=== PATIENT | female | born 1950 | race Caucasian/White ===

== ENCOUNTER 2016-06-17 15:24 | Outpatient (CLI) | payer OTHER | END 2016-06-17 15:25 | disposition home or self-care (01) | DX: Z12.31 Encounter for screening mammogram for malignant neoplasm of breast (principal) ==

== ENCOUNTER 2016-07-10 08:30 | Outpatient (CLI) | payer OTHER | END 2016-07-10 08:31 | disposition home or self-care (01) | DX: N39.0 Urinary tract infection, site not specified (principal) ==

== ENCOUNTER 2016-12-23 08:42 | Outpatient (CLI) | payer MEDICARE, OTHER ==
[2016-12-23 12:57] LABS: EOSINOPHILS # (AUTO) 0.1 10^3/uL (0.0-0.7); EOSINOPHILS % (AUTO) 3.6 %; HCT - HEMATOCRIT 38.3 % (37.0-47.0); HGB - HEMOGLOBIN 12.8 g/dL (12.0-16.0); LYMPHOCYTES # (AUTO) 1.3 10^3/uL (1.5-3.5); LYMPHOCYTES % (AUTO) 34.2 %; MEAN CORPUSCULAR HEMOGLOBIN 30.4 pg (27.0-31.0); MEAN CORPUSCULAR HGB CONC 33.5 g/dL (32.0-36.0); MEAN CORPUSCULAR VOLUME 90.7 fL (81.0-99.0); MONOCYTES # (AUTO) 0.2 10^3/uL (0.0-1.0); MONOCYTES % (AUTO) 6.4 %; NEUTROPHILS % (AUTO) 54.8 %; RED BLOOD COUNT 4.23 10^6/uL (4.20-5.40); RED CELL DISTRIBUTION WIDTH 13.3 % (12.0-15.0); UNCORRECTED WHITE BLOOD COUNT 3.7 x10^3/uL; WHITE BLOOD COUNT 3.7 x10^3/uL (4.8-10.8)
[2016-12-23 13:22] LABS: ALBUMIN/GLOBULIN RATIO 1.4 (1.0-2.2); BILIRUBIN,TOTAL 0.6 mg/dL (0.2-1.0); BUN - BLOOD UREA NITROGEN 20 mg/dL (6-20); CALCIUM 9.2 mg/dL (8.5-10.3); CARBON DIOXIDE - CO2 28 mmol/L (21-32); CHLORIDE 105 mmol/L (101-111); CHOL/HDL RATIO 3.1 (<4.4); CHOLESTEROL 214 mg/dL; CREATININE 0.9 mg/dL (0.4-1.0); GFR - MDRD 63 (>89); GLUCOSE 89 mg/dL (70-100); HDL CHOLESTEROL 69 mg/dL; LDL/HDL RATIO 1.8 (<4.4); POTASSIUM 4.2 mmol/L (3.5-5.0); SODIUM 138 mmol/L (135-145); TOTAL PROTEIN 6.6 g/dL (6.7-8.2); TRIGLYCERIDES 94 mg/dL; VLDL CHOLESTEROL 19 mg/dL
== END 2016-12-23 08:43 | disposition home or self-care (01) ==
LOC: LAB.N 08:42
PROVIDERS: ATTEND Family Medicine
DX: R74.8 Abnormal levels of other serum enzymes (principal); Z13.220 Encounter for screening for lipoid disorders; E03.9 Hypothyroidism, unspecified; D72.819 Decreased white blood cell count, unspecified
CPT/HCPCS: 36415; 80053; 80061; 84443; 85025

== ENCOUNTER 2017-06-21 13:30 | Outpatient (CLI) | payer MEDICARE, OTHER ==
--- NOTE | 2017-06-22 19:56 | Mammography Report ---
DIGITAL SCREENING MAMMOGRAM: 06/21/2017 CLINICAL INDICATION: A 66-year-old with personal history of right breast cancer, status post lumpectomy and radiation therapy for screening. TECHNIQUE: Routine CC and MLO projections were obtained of the breasts. COMPARISON: 05/2016, 04/2015, 04/2013, 07/2012, 12/2011, 04/2011 FINDINGS: The breasts again demonstrate heterogeneously dense fibroglandular parenchyma. Postoperative and posttreatment changes in the right breast are stable. Coarse and punctate, typically benign calcifications are present. No suspicious masses, clustered microcalcifications, or regions of architectural distortion are identified. IMPRESSION: BENIGN FINDINGS. RECOMMENDATION: Routine annual screening unless otherwise clinically indicated. BIRADS CATEGORY - 2 BENIGN FINDINGS. STANDARD QUALIFYING STATEMENTS: 1. This examination was reviewed with the aid of Computer-Aided Detection (CAD). 2. A negative or benign imaging report should not delay biopsy if clinically suspicious findings are present. Consider surgical consultation if warranted. More than 5% of cancers are not identified by imaging. 3. Dense breasts may obscure an underlying neoplasm. TD: 06/22/2017 19:56
== END 2017-06-21 13:31 | disposition home or self-care (01) ==
LOC: DI.N 13:30
PROVIDERS: ATTEND Family Medicine
DX: Z12.31 Encounter for screening mammogram for malignant neoplasm of breast (principal); Z85.3 Personal history of malignant neoplasm of breast
CPT/HCPCS: 77067

== ENCOUNTER → 2018-01-03 | Outpatient (CLI) | payer MEDICARE, OTHER ==
[2018-01-03 18:49] LABS: BASOPHILS % (AUTO) 0.8 %; EOSINOPHILS # (AUTO) 0.1 10^3/uL (0.0-0.7); EOSINOPHILS % (AUTO) 3.1 %; HGB - HEMOGLOBIN 13.4 g/dL (12.0-16.0); LYMPHOCYTES # (AUTO) 1.2 10^3/uL (1.5-3.5); LYMPHOCYTES % (AUTO) 30.6 %; MEAN CORPUSCULAR HEMOGLOBIN 30.3 pg (27.0-31.0); MEAN CORPUSCULAR VOLUME 91.7 fL (81.0-99.0); MEAN PLATELET VOLUME 8.4 fL (7.9-10.8); MONOCYTES # (AUTO) 0.2 10^3/uL (0.0-1.0); MONOCYTES % (AUTO) 6.2 %; NEUTROPHILS # (AUTO) 2.3 10^3/uL (1.5-6.6); NEUTROPHILS % (AUTO) 59.3 %; PLT - PLATELET COUNT 307 10^3/uL (130-450); RED BLOOD COUNT 4.41 10^6/uL (4.20-5.40); WHITE BLOOD COUNT 3.8 x10^3/uL (4.8-10.8)
[2018-01-03 19:09] LABS: ALBUMIN 4.1 g/dL (3.2-5.5); ALBUMIN/GLOBULIN RATIO 1.4 (1.0-2.2); ALKALINE PHOSPHATASE 79 IU/L (42-121); ALT ALANINE AMINOTRANSFERASE 20 IU/L (10-60); AST ASPARTATE AMINOTRANSFERASE 24 IU/L (10-42); BILIRUBIN,TOTAL 0.7 mg/dL (0.2-1.0); BUN - BLOOD UREA NITROGEN 19 mg/dL (6-20); CALCIUM 9.5 mg/dL (8.5-10.3); CARBON DIOXIDE - CO2 28 mmol/L (21-32); CHLORIDE 102 mmol/L (101-111); CHOL/HDL RATIO 3.3 (<4.4); CHOLESTEROL 213 mg/dL; CREATININE 0.8 mg/dL (0.4-1.0); GFR - MDRD 72 (>89); GLUCOSE 88 mg/dL (70-100); HDL CHOLESTEROL 64 mg/dL; LDL CHOLESTEROL,CALCULATED 117 mg/dL; LDL/HDL RATIO 1.8 (<4.4); SODIUM 140 mmol/L (135-145); TOTAL PROTEIN 7.1 g/dL (6.7-8.2); VLDL CHOLESTEROL 32 mg/dL
[2018-01-04 14:02] LABS: HEPATITIS C ANTIBODY NON-REACTIVE (NON-REACTIVE)
== END ==
LOC: LAB.WCP 08:00
PROVIDERS: ATTEND Family Medicine
DX: R74.8 Abnormal levels of other serum enzymes (principal); E78.5 Hyperlipidemia, unspecified; E03.9 Hypothyroidism, unspecified; D72.819 Decreased white blood cell count, unspecified; Z11.59 Encounter for screening for other viral diseases
CPT/HCPCS: 36415; 80053; 80061; 83721; 84443; 85025; 86803

== ENCOUNTER 2018-06-21 10:23 | Outpatient (CLI) | payer MEDICARE, OTHER ==
--- NOTE | 2018-06-22 09:17 | Mammography Report ---
Reason: SCREENING MAMMO Procedure Date: 06/21/2018 Accession Number: [id number] / [id number] Procedure: MGN - Screening Mammo Dig Bilat CPT Code: FULL RESULT: EXAM: Screening Mammo Dig Bilat DATE: 06/21/2018 10:58 AM CLINICAL HISTORY: Screening encounter. History of early menses and personal history of right breast cancer status post lumpectomy and radiation. TECHNIQUE: (B) - Bilateral CC and MLO views were obtained. A left laterally exaggerated view is obtained. COMPARISON: 06/21/2017 through 04/17/2013. PARENCHYMAL PATTERN: (A) - The breast(s) demonstrate(s) scattered fibroglandular densities. FINDINGS: Stable postlumpectomy changes in the right breast. There are no suspicious masses, calcifications, or areas of distortion. IMPRESSION: Benign findings. BI-RADS category 2. RECOMMENDATION: (ANNUAL) - Recommend routine annual screening mammography. BI-RADS CATEGORY: (2) - Benign Findings. STANDARD QUALIFYING STATEMENTS: 1. This examination was not reviewed with the aid of Computer-Aided Detection (CAD). 2. A negative or benign imaging report should not preclude biopsy if clinically suspicious findings are present. 3. Dense breasts may obscure an underlying neoplasm. 4. This examination was reviewed without the aid of 3D breast imaging (tomosynthesis).
== END 2018-06-21 10:24 | disposition home or self-care (01) ==
LOC: DI.N 10:23
DX: Z12.31 Encounter for screening mammogram for malignant neoplasm of breast (principal); Z85.3 Personal history of malignant neoplasm of breast
CPT/HCPCS: 77067

== ENCOUNTER 2020-04-06 10:00 | Outpatient (CLI) | payer MEDICARE, OTHER ==
[2020-04-06 13:04] LABS: BASOPHILS % (AUTO) 0.4 %; EOSINOPHILS # (AUTO) 0.1 10^3/uL (0.0-0.7); EOSINOPHILS % (AUTO) 1.3 %; HGB - HEMOGLOBIN 13.2 g/dL (12.0-16.0); LYMPHOCYTES % (AUTO) 19.3 %; MEAN CORPUSCULAR HEMOGLOBIN 30.2 pg (27.0-31.0); MEAN CORPUSCULAR VOLUME 94.3 fL (81.0-99.0); MEAN PLATELET VOLUME 9.9 fL (7.9-10.8); MONOCYTES # (AUTO) 0.3 10^3/uL (0.0-1.0); MONOCYTES % (AUTO) 5.3 %; NEUTROPHILS # (AUTO) 3.9 10^3/uL (1.5-6.6); NEUTROPHILS % (AUTO) 73.5 %; PLT - PLATELET COUNT 290 10^3/uL (130-450); RED BLOOD COUNT 4.37 10^6/uL (4.20-5.40); RED CELL DISTRIBUTION WIDTH 12.5 % (12.0-15.0); WHITE BLOOD COUNT 5.3 x10^3/uL (4.8-10.8)
[2020-04-06 13:19] LABS: ALBUMIN 4.4 g/dL (3.2-5.5); ALBUMIN/GLOBULIN RATIO 1.7 (1.0-2.2); BILIRUBIN,TOTAL 0.5 mg/dL (0.2-1.0); CALCIUM 9.2 mg/dL (8.5-10.3)
== END 2020-04-06 23:59 | disposition home or self-care (01) ==
LOC: LAB.N 10:00
PROVIDERS: ATTEND Physician Assistant Medical
DX: K92.1 Melena (principal)
CPT/HCPCS: 36415; 80053; 83690; 85025

== ENCOUNTER 2022-06-29 10:15 | Outpatient (CLI) | payer MEDICARE ==
--- NOTE | 2022-06-30 08:47 | XRAY Report ---
PROCEDURE: Foot 3 View BILAT INDICATIONS: BL FOOT PAIN TECHNIQUE: 3 views of the right and left foot were acquired. COMPARISON: None. FINDINGS: Bones: No acute fracture or dislocation identified. The left foot there is moderate-severe degenerat win change at the first MTP joint and polyarticular degenerative changes present elsewhere within the foot. At the right foot, moderate first MTP joint degenerative changes and scattered polyarticular d egenerative changes within the foot, most pronounced at the interphalangeal joints. Periarticular lucencies are demonstrated indeterminate for subchondral cystic change or erosions. Soft tissues: No suspicious soft tissue calcifications. IMPRESSION: No acute bony abnormality. If pain persists with conservative management, consider repeat radiographs in 10-14 days or cross-sectional imaging. Reviewed by: Glynn Ceron MD on 06/30/2022 8:46 AM PDT Approved by: Glynn Ceron MD on 06/30/2022 8:46 AM PDT Station ID: [id number]
== END 2022-06-29 10:16 | disposition home or self-care (01) ==
LOC: DI 10:15
PROVIDERS: ATTEND Podiatrist
DX: M79.671 Pain in right foot (principal); M79.672 Pain in left foot

== ENCOUNTER 2023-02-27 06:31 | Emergency (ER) | payer MEDICARE ==
[2023-02-27 07:05] VITALS: O2SAT 100
[2023-02-27] MEDS ORDERED: SODIUM CHLORIDE 0.9% 1,000 ML IV STA (07:34)
--- NOTE | 2023-02-27 07:37 | ED Physician Documentation ---
PD HPI ABD PAIN - Stated complaint Stated Complaint: STOMACH PX - Chief complaint Chief Complaint: Abd Pain - History obtained from History obtained from: Patient, Family - History of Present Illness Timing - onset: How many weeks ago (1) Timing - duration: Weeks (1) Timing - details: Gradual onset, Still present Quality: Cramping, Sharp, Pain Location: LLQ Improved by: Laying still Associated symptoms: Nausea, Constipation Similar symptoms before: Has not had sx before Recently seen: Other (on paxlovid for COVID day #4) - Additional information Additional information: Aurelia is a 72-year-old female who has recently started Paxlovid for COVID and she has been constipated she took some laxative she felt that helped the constipation she is now developed some left lower quadrant abdominal pain similar to what she has had previously with diverticulitis. Review of Systems Constitutional: reports: Fatigue. denies: Fever Ears: denies: Ear pain Nose: denies: Congestion Throat: denies: Sore throat Cardiac: denies: Chest pain / pressure Respiratory: denies: Cough GI: reports: Abdominal Pain, Nausea, Constipation : denies: Dysuria, Frequency PD PAST MEDICAL HISTORY - Past Medical History Past Medical History: Yes Cardiovascular: None Respiratory: None Endocrine/Autoimmune: HyPOthyroidism GI: GERD, Diverticulitis : None HEENT: None Psych: None Musculoskeletal: Osteoarthritis Derm: None - Past Surgical History Past Surgical History: Yes /[employer]: Hysterectomy, Other - Present Medications Home Medications: Ambulatory Orders Medication Instructions Recorded Confirmed Levothyroxine [Synthroid] 112 mcg PO QDAC 05/24/13 02/27/23 ZOLMitriptan [Zomig] 5 mg PO PRN PRN 05/24/13 02/27/23 Ciprofloxacin HCl [Cipro] 500 mg PO BID #14 tablet 02/27/23 Gabapentin [Neurontin] 1 cap PO DAILY 02/27/23 02/27/23 Galcanezumab-Gnlm [Emgality Pen] 1 applic SUBQ PRN PRN 02/27/23 02/27/23 SUMAtriptan [Imitrex] 1 tab PO PRN PRN 02/27/23 02/27/23 metroNIDAZOLE [Flagyl] 500 mg PO BID 7 Days #14 tablet 02/27/23 - Allergies Allergies/Adverse Reactions: Allergies Allergy/AdvReac Type Severity Reaction Status Date / Time No Known Drug Allergies Allergy Verified 02/27/23 07:03 - Social History Does the pt smoke?: No Smoking Status: Never smoker Does the pt drink ETOH?: No Does the pt have substance abuse?: No - Immunizations Immunizations are current?: Yes - POLST Patient has POLST: No PD ED PE NORMAL - Vitals Vital signs reviewed: Yes (wide pulse pressure. ) - General General: Alert and oriented X 3, No acute distress, Well developed/nourished - HEENT HEENT: Atraumatic, PERRL - Neck Neck: Supple, no meningeal sign - Cardiac Cardiac: RRR, No murmur - Respiratory Respiratory: No respiratory distress, Clear bilaterally - Abdomen Abdomen: Normal bowel sounds, Soft, Non distended, No organomegaly, Other (specific LLQ tenderness to exam. ) - Back Back: No CVA TTP, No spinal TTP - Derm Derm: Normal color, Warm and dry, No rash - Extremities Extremities: No deformity, No edema - Neuro Neuro: Alert and oriented X 3, diamond powder mixer 2-12 intact, No motor deficit, No sensory deficit, Normal speech Eye Opening: Spontaneous Motor: Obeys Commands Verbal: Oriented GCS Score: 15 - Psych Psych: Normal mood, Normal affect Results - Vitals Vitals: Vital Signs - 24 hr 02/27/23 02/27/23 02/27/23 07:00 08:00 11:08 Temperature 36.6 C 36.6 C Heart Rate 74 60 86 Respiratory 16 14 16 Rate Blood Pressure 106/38 L 107/73 111/69 O2 Saturation 100 100 100 Oxygen O2 Source Room air - Labs Labs: Laboratory Tests 02/27/23 02/27/23 02/27/23 08:00 08:00 09:40 WBC 9.7 RBC 4.31 Hgb 12.9 Hct 40.5 MCV 94.0 MCH 29.9 MCHC 31.9 L RDW 12.4 Plt Count 302 MPV 9.6 Neut # (Auto) 8.2 H Lymph # (Auto) 1.1 L Barton # (Auto) 0.3 Eos # (Auto) 0.1 Baso # (Auto) 0.0 Absolute Nucleated RBC 0.00 Nucleated RBC % 0.0 Sodium 139 Potassium 3.7 Chloride 107 Carbon Dioxide 26 Anion Gap 6.0 BUN 24 H Creatinine 0.9 Estimated GFR (MDRD) 62 L Glucose 99 Calcium 9.0 Total Bilirubin 0.4 AST 24 ALT 16 Alkaline Phosphatase 62 Total Protein 6.8 Albumin 4.1 Globulin 2.7 Albumin/Globulin Ratio 1.5 Lipase 63 Urine Color YELLOW Urine Clarity CLEAR Urine pH 6.5 Ur Specific [place] 1.010 Urine Protein NEGATIVE Urine Glucose (UA) NEGATIVE Urine Ketones NEGATIVE Urine Occult Blood NEGATIVE Urine Nitrite NEGATIVE Urine Bilirubin NEGATIVE Urine Urobilinogen 0.2 (NORMAL) Ur Leukocyte Esterase NEGATIVE Ur Microscopic Review NOT INDICATED Urine Culture Comments NOT INDICATED - Rads (name of study) CT abdomen pelvis Relevant Findings:: Prelim report reviewed PD Medical Decision Making - ED course Complexity details: reviewed old records, reviewed results, re-evaluated patient, considered differential, d/w patient, d/w family Reviewed Lab Results: CT ab/pel Impression: Low-grade inflammatory changes throughout the colon favoring colitis. More focal mild inflammation is also seen adjacent to the sigmoid colon, with a nearby 1 cm fluid collection without significant rim enhancement, suspicious for concomitant diverticulitis. Consider correlation with colonoscopy results. Distended gallbladder and mildly distended common bile duct. The pancreatic duct is also prominent correlate with LFTs and consider future MRCP or ERCP correlation if clinically concerning We reviewed a complete blood count count showing a normal white blood cell count normal hemoglobin hematocrit and platelets chemistry showed normal electrolytes BUN is elevated at 24 creatinine is normal at 0.9 patient has had elevated BUN previously liver functions entirely normal bilirubin normal lipase normal urinalysis normal I interpreted these test indicate the patient has a mild degree of dehydration and infection is not overwhelming. There was concern from the CT scan about the common bile duct and common bile duct stone and there is no biochemical evidence of biliary obstruction. ED course: Kristyn Mirza presented to the emergency department with left lower quadrant abdominal pain and was found to have diverticulitis on CT scan evaluation. She has had previous successful treatment of diverticulitis and we will again attempt this. Departure - Departure Disposition: 01 Home, Self Care Clinical Impression: Diverticulitis of gastrointestinal tract Condition: Stable Instructions: ED Diverticulitis Follow-Up: MARCUS STUBBS MD [Primary Care Provider] - Prescriptions: Ciprofloxacin HCl [Cipro] 500 mg PO BID #14 tablet metroNIDAZOLE [Flagyl] 500 mg PO BID 7 Days #14 tablet Comments: Ghada, today it looks like the pain you are having in your abdomen is related to an episode of diverticulitis. This is an acute infection of an outpouching on the colon. We typically treat this with a combination of antibiotics including Cipro and Flagyl. It is important not to drink alcohol while you are taking the Flagyl. Our expectations with treatment are improvement of your symptoms day by day. Be certain to keep the fecal stream moving. If you get constipated use a laxative. I [facility] E [facility] [place]. Discharge Date/Time: 02/27/23 11:10
[2023-02-27 08:30] LABS: BASOPHILS % (AUTO) 0.1 %; EOSINOPHILS # (AUTO) 0.1 10^3/uL (0.0-0.7); EOSINOPHILS % (AUTO) 0.5 %; HCT - HEMATOCRIT 40.5 % (37.0-47.0); HGB - HEMOGLOBIN 12.9 g/dL (12.0-16.0); LYMPHOCYTES # (AUTO) 1.1 10^3/uL (1.5-3.5); LYMPHOCYTES % (AUTO) 11.4 %; MEAN CORPUSCULAR HEMOGLOBIN 29.9 pg (27.0-31.0); MEAN CORPUSCULAR HGB CONC 31.9 g/dL (32.0-36.0); MEAN PLATELET VOLUME 9.6 fL (7.9-10.8); MONOCYTES # (AUTO) 0.3 10^3/uL (0.0-1.0); MONOCYTES % (AUTO) 3.1 %; NEUTROPHILS # (AUTO) 8.2 10^3/uL (1.5-6.6); NEUTROPHILS % (AUTO) 84.6 %; PLT - PLATELET COUNT 302 10^3/uL (130-450); RED BLOOD COUNT 4.31 10^6/uL (4.20-5.40); RED CELL DISTRIBUTION WIDTH 12.4 % (12.0-15.0); WHITE BLOOD COUNT 9.7 x10^3/uL (4.8-10.8)
[2023-02-27 08:40] LABS: ALBUMIN 4.1 g/dL (3.2-5.5); ALBUMIN/GLOBULIN RATIO 1.5 (1.0-2.2); BILIRUBIN,TOTAL 0.4 mg/dL (0.2-1.0); CREATININE 0.9 mg/dL (0.6-1.3); POTASSIUM 3.7 mmol/L (3.5-4.5); TOTAL PROTEIN 6.8 g/dL (6.4-8.9)
[2023-02-27 09:45] LABS: BILIRUBIN,URINE NEGATIVE (NEGATIVE); GLUCOSE, URINE (UA) NEGATIVE (NEGATIVE); KETONES,URINE (UA) NEGATIVE (NEGATIVE); LEUKOCYTE ESTERASE, URINE NEGATIVE (NEGATIVE); NITRITE,URINE NEGATIVE (NEGATIVE); OCCULT BLOOD,URINE NEGATIVE (NEGATIVE); PH,URINE 6.5 PH (5.0-7.5); PROTEIN,URINE NEGATIVE (NEGATIVE); UROBILINOGEN,URINE 0.2 (NORMAL) E.U./dL (NORMAL)
[2023-02-27 09:46] LABS: CLARITY,URINE CLEAR (CLEAR)
--- NOTE | 2023-02-27 09:57 | CT Report ---
PROCEDURE: ABDOMEN/PELVIS W INDICATIONS: LLQ pain CONTRAST: Omni 300 100ml TECHNIQUE: After the administration of intravenous contrast, a CT scan of the abdomen and pelvis was performed. Images were recorded and evaluated at appropriate window settings. Reformats: coronal and sagittal. F or radiation dose reduction, the following was used: automated exposure control, adjustment of mA and /or kV according to patient size. COMPARISON: 04/17/2015 FINDINGS: Image quality: Diagnostic Lower chest: Basal atelectasis. Liver: Possible hepatic steatosis. Small exophytic hemangioma arising from the inferior margin. This is stable. Gallbladder and biliary system: Distended gallbladder. Mildly distended CBD, measuring about 8 mm. Pancreas: Small periampullary duodenal diverticulum. Prominent pancreatic duct is increased from prio r, measuring 3 to 4 mm at the head. There may be a tiny cystic lesion at the uncinate process about 4 mm. Spleen: Nonenlarged Adrenals: Mild left thickening, no discrete nodule Kidneys: No suspicious solid renal mass or hydronephrosis Vessels and lymph nodes: The main portal vein is patent. No abdominal aortic aneurysm. No pathologic lymph nodes by size criteria. Bowel and peritoneum: No evidence of small bowel obstruction. Appendix is nondilated. Colonic diverticulosis mild wall thickening and hyperemia throughout the distal colon. No abscess. Th is also involves the rectum to a mild extent. The proximal colon shows minimal mucosal hyperemia with primarily liquid contents. More focal inflammation is seen in the left pelvis, where there is a 1 cm small fluid collection andrey cent to the sigmoid colon. Body wall: Unremarkable Pelvis: Bladder is unremarkable. Hysterectomy. Bones: Degenerative changes, no acute or suspicious osseous finding. IMPRESSION: Low-grade inflammatory changes throughout the colon favoring colitis. More focal mild inflammation is also seen adjacent to the sigmoid colon, with a nearby 1 cm fluid collection without significant rim enhancement (2/59), suspicious for concomitant diverticulitis. Consider correlation with colonoscopy results. Distended gallbladder and mildly distended CBD. The pancreatic duct is also prominent. Correlate with LFTs and consider future MRCP or ERCP correlation if clinically concerning Other findings as above. Reviewed by: Steve Gonzáles MD on 02/27/2023 9:56 AM PST Approved by: Steve Gonzáles MD on 02/27/2023 9:56 AM PST Station ID: [id number]
[2023-02-27 11:13] VITALS: BP 111/69
[2023-02-27] MEDS ORDERED: iohexoL-300 100 ML VIAL IVP ONE (11:52)
== END 2023-02-27 11:10 | disposition home or self-care (01) ==
LOC: ED 06:31
DX: K57.32 Diverticulitis of large intestine without perforation or abscess without bleeding (principal)
CPT/HCPCS: 36415; 74177; 80053; 81003; 83690; 85025; 99284; Q9967; 81001; 87086